=== PATIENT | female | born 1960 | race Caucasian/White ===

== ENCOUNTER 2018-03-17 17:47 | Inpatient (IN) ==
[2018-03-17] MEDS ORDERED: METHOCARBAMOL 500 MG TABLET PO PRN (18:23)
[2018-03-17] MEDS ORDERED: HydrOXYzine PAMOATE 25 MG CAPSULE PO PRN (18:23)
[2018-03-17] MEDS ORDERED: DICYCLOMINE 10 MG CAPSULE PO PRN (18:23)
[2018-03-17] MEDS ORDERED: ACETAMINOPHEN 325 MG TABLET PO PRN (18:24)
[2018-03-17] MEDS ORDERED: ONDANSETRON 4 MG/2 ML VIAL IV PRN (18:24)
[2018-03-17] MEDS ORDERED: PROMETHAZINE 25 MG/1 ML VIAL IM PRN (18:24)
[2018-03-17] MEDS ORDERED: LORazepam 1 MG TABLET PO SCH (18:30)
[2018-03-17] MEDS: chlordiazePOXIDE 25 MG CAPSULE PO SCH (19:10)
[2018-03-17 19:56] LABS: Basophils # 0.1 10*3/uL (0.0-0.2); Basophils % 0.8 % (0.0-0.8); Eosinophils # 0.1 10*3/uL (0.0-0.87); Eosinophils % 0.9 % (0.00-10.9); Hematocrit 42.4 VOL% (35.7-47.0); Hemoglobin 14.2 GM/DL (12.0-16.0); Immature Granulocytes % 0.3 %; Immature Granulocytes Absolute 0.03 #; Lymphocytes # 2.3 10*3/uL (1.4-4.0); Lymphocytes % 26.2 % (21.3-54.2); Mean Corpuscular HGB Conc 33.5 GM/DL (32-36); Mean Corpuscular Hemoglobin 31 PG (27-34); Mean Corpuscular Volume 91.4 FL (87-102); Mean Platelet Volume 9.8 FL (9.6-12.0); Monocytes # 0.8 10*3/uL (0.11-0.8); Monocytes % 9.2 % (1.7-12.7); Neutrophils # 5.6 10*3/uL (1.4-7.4); Neutrophils % 62.6 % (38.7-73.9); Platelet Count 307 T/CUMM (130-400); Red Blood Count 4.64 MC/CUMM (3.8-5.5); Red Cell Distribution Width 13.3 % (9.3-17.3); White Blood Count 8.9 T/CUMM (4-12)
[2018-03-17] MEDS ORDERED: THIAMINE INJ 100 MG, FOLIC ACID INJ 1 MG, MULTIVITAMIN INJ 10 ML in SODIUM CHLORIDE 0.9... IV ONE (20:00)
[2018-03-17 20:02] LABS: INR 0.9; PT Patient Result 10.3 SECS
[2018-03-17 20:14] LABS: Alanine Aminotransferase 32 U/L (13-56); Alkaline Phosphatase 57 U/L (45-117); Amylase 62 U/L (25-115); Aspartate Amino Transferase 20 U/L (0-37); Blood Urea Nitrogen 16 MG/DL (7-18); Calcium 9.1 MG/DL (8.5-10.1); Glucose 98 MG/DL (74-106); Osmolality,Calculated 275.7 MOS/KG (273-304); Potassium 3.6 MMOL/L (3.5-5.1); Sodium 138 MMOL/L (136-145); Total Protein 7.6 G/DL (6.4-8.3)
[2018-03-17] MEDS: LORazepam 2 MG/1 ML VIAL IV PRN (21:35)
[2018-03-18] MEDS: chlordiazePOXIDE 25 MG CAPSULE PO SCH ×4 (01:55→18:16)
[2018-03-18] MEDS: LORazepam 2 MG/1 ML VIAL IV PRN ×2 (04:06→20:33)
[2018-03-18 06:59] LABS: Apearance,Urine Clear (Clear); Bilirubin,Urine Negative (Negative); Blood, Urine Negative (Negative); Glucose,Urine (UA) Negative (Negative); Ketones,Urine Negative (Negative); Nitrite,Urine Negative (Negative); Protein,Urine Negative; Urine Color Straw (Yellow); Urine Urobilinogen 0.2 EU/DL (0.2-1.0)
[2018-03-18 07:14] LABS: Barbiturates Screen,Urine Negative (Negative); Benzodiazepines Screen,Urine Positive (Negative); Cannabinoid Screen,Urine Negative (Negative); Opiate Screen,Urine Negative (Negative); Phencyclidine Screen,Urine Negative (Negative)
[2018-03-18] MEDS: THIAMINE 100 MG TABLET PO SCH (08:40)
[2018-03-18] MEDS: MULTIVITAMIN (CENTRUM) TABLET PO SCH (08:40)
[2018-03-18] MEDS: PANTOPRAZOLE 40 MG TABLET PO SCH (08:40)
[2018-03-18] MEDS: SIMVASTATIN 20 MG TABLET PO SCH (20:33)
[2018-03-19] MEDS: chlordiazePOXIDE 25 MG CAPSULE PO SCH ×3 (02:35→18:31)
[2018-03-19] MEDS: LEVOTHYROXINE 50 MCG TABLET PO SCH (05:59)
[2018-03-19] MEDS: MULTIVITAMIN (CENTRUM) TABLET PO SCH (11:19)
[2018-03-19] MEDS: FLUoxetine 20 MG CAPSULE PO SCH (11:19)
[2018-03-19] MEDS: PANTOPRAZOLE 40 MG TABLET PO SCH (11:19)
[2018-03-19] MEDS: THIAMINE 100 MG TABLET PO SCH (11:20)
[2018-03-19] MEDS: SIMVASTATIN 20 MG TABLET PO SCH (20:58)
[2018-03-19] MEDS: LORazepam 2 MG/1 ML VIAL IV PRN (21:48)
[2018-03-20] MEDS: chlordiazePOXIDE 25 MG CAPSULE PO SCH ×2 (03:24→12:39)
[2018-03-20 06:24] LABS: Osmolality,Calculated 275.5 MOS/KG (273-304); Potassium 3.6 MMOL/L (3.5-5.1)
[2018-03-20] MEDS: LEVOTHYROXINE 50 MCG TABLET PO SCH (06:49)
[2018-03-20] MEDS: FLUoxetine 20 MG CAPSULE PO SCH (09:07)
[2018-03-20] MEDS: MULTIVITAMIN (CENTRUM) TABLET PO SCH (09:07)
[2018-03-20] MEDS: THIAMINE 100 MG TABLET PO SCH (09:07)
[2018-03-20] MEDS: PANTOPRAZOLE 40 MG TABLET PO SCH (09:07)
[2018-03-20 13:33] VITALS: BP 144/87
== END 2018-03-20 12:43 | disposition home or self-care (01) | DRG 897 ==
LOC: N.4E 17:47
PROVIDERS: ADMIT Internal Medicine; ATTEND Internal Medicine